=== PATIENT | female | born 1990 | race Caucasian/White ===

== ENCOUNTER 2018-06-02 10:15 | Day surgery (SDC) | payer OTHER ==
--- NOTE | 2018-06-02 08:11 | HP ---
DATE OF SURGERY: 06/02/2018 HISTORY OF PRESENT ILLNESS: The patient is a 28 year-old had boil-like area that hurt initially, still draining. She had some problems for the past few years. Family history of grandfather with stomach issues. No colon cancer. No known inflammatory bowel disease in the family. No prior colonoscopy. She had some bloating, pain, diarrhea and nausea. Okay for a few days and then worse for two weeks. PAST MEDICAL HISTORY: She denies any chronic illnesses. PAST SURGICAL HISTORY: Appendectomy, tubal in the past. MEDICATIONS: control pills. ALLERGIES: SULFA. FAMILY HISTORY: Cancer, diabetes. Grandfather may have had colon cancer. SOCIAL HISTORY: No smoking. Occasional alcohol use. REVIEW OF SYSTEMS: Twelve systems reviewed. No chest pain or palpitations other systems negative or noncontributory as above and per preadmission questionnaire. PHYSICAL EXAMINATION: GENERAL: No acute distress. HEENT: Sclerae nonicteric. NECK: No JVD. CHEST: Equal excursion, nonlabored breathing. CVS: Regular rate and rhythm. ABDOMEN: Soft. No peritoneal signs. EXTREMITIES: No significant edema. NEURO: Alert, moving extremities symmetrically. No gross motor deficits noted. : Some drainage perianal area unclear if fistula ano or not. IMPRESSION: Persistent perianal drainage possible fistula. I feel the patient will benefit from colonoscopy, exam under anesthesia, possible fistula plus placement, possible fistulectomy or fistulotomy depending on operative findings. Risks and benefits explained in detail including but not limited to bleeding or infection, risk of bowel injury or perforation possibly requiring open procedure, risk of missed or nondiagnosis or incomplete exam possibly requiring barium enema, other studies or procedures, possibility we may not find any internal opening, may not be able to place a plug and while it is superficial may not be able to proceed with fistulotomy or fistulectomy. Risk of aches, pains, burning or numbness. Risk of sphincter irritability or dysfunction possible transient or longer term possibly requiring other referrals, possibility if unable to find any internal opening may not be able to place a plug, do a fistulotomy or fistulectomy, may require referral to tertiary anal specialist for further evaluation and treatment. She also understands there is a possibility should she have inflammatory bowel disease or Crohn's disease it is common to have perianal disease and be able to treat symptomatically. She understands all of the above but not limited to will proceed with colonoscopy, exam under anesthesia, possible fistula plug placement and possible fistulectomy depending on operative findings.
[~2018-06-02 10:15] MED LIST: ANUSOL-HC 2.5% CREAM 30 GM ONE; Lactated Ringers 1,000 ML IV ONE
[2018-06-02] MEDS ORDERED: SUBLIMAZE 100 MCG/2 ML IV ONE (10:16)
[2018-06-02] MEDS ORDERED: TORAdol 30 mg Injection IJ ONE (10:16)
[2018-06-02] MEDS ORDERED: Quelicin Fliptop 200 MG/10 ML IJ ONE (10:16)
[2018-06-02] MEDS ORDERED: Decadron 4 MG INJ IV ONE (10:16)
[2018-06-02] MEDS ORDERED: DIPRIVAN 200 MG/20 ML IV ONE (10:16)
[2018-06-02] MEDS ORDERED: EXPAREL 266 MG/20 ML VIAL IJ ONE (10:16)
[2018-06-02] MEDS ORDERED: Zofran 4 MG/2 ML VIAL IV ONE (10:16)
[2018-06-02] MEDS: Lactated Ringers 1,000 ML IV SCH ×2 (10:20→15:16)
[2018-06-02] MEDS ORDERED: Lactated Ringers 1,000 ML IV ONE ×2 (12:19→14:05)
[2018-06-02] MEDS ORDERED: DEMEROL 50 MG ONE (13:23)
[2018-06-02] MEDS ORDERED: Zofran 4 MG/2 ML VIAL IV STA (13:55)
[2018-06-02] MEDS ORDERED: Zofran 4 MG/2 ML VIAL ONE (14:01)
[2018-06-02 15:33] VITALS: O2SAT 98
[2018-06-02 15:36] VITALS: BP 142/90; PULSE 75
--- NOTE | 2018-06-03 09:34 | OP ---
SURGERY DATE/TIME: 06/02/2018 1205 PREOPERATIVE DIAGNOSIS: History of recurrent and persistent perianal drainage, question fistula in ano, some bleeding at times, need for colonoscopy as well as exam under anesthesia. POSTOPERATIVE DIAGNOSES: 1) Inflammation of terminal ileum (biopsy pending to evaluate for inflammatory bowel disease). 2) Pancolonic diverticulosis. 3) Internal and external hemorrhoids with fistula in ano. 4) Somewhat poor prep limiting the exam. PROCEDURES: 1) Colonoscopy to terminal ileum. 2) Retrograde ileoscopy. 3) Random ileum biopsy to evaluate for inflammatory bowel disease. 4) Random colon biopsy to evaluate for microscopic colitis. 5) Exam under anesthesia and debridement of fistula in ano and placement of fistula plug with debridement and closure of internal opening. SURGEON: Dr. Willard Stroud. ANESTHESIA: General. ESTIMATED BLOOD LOSS: Minimal. INDICATIONS: As noted above. Risks and benefits explained in detail but not limited to and consent obtained. DESCRIPTION OF PROCEDURE AND FINDINGS: The patient is taken to the operating room. General anesthesia introduced. In lateral position, appropriate padding, positioned per anesthesia and OR staff. Digital rectal exam revealed area where she had been having perianal-perirectal drainage. She had some internal and external hemorrhoids. Video colonoscope inserted and passed up through the tortuous sigmoid, descending, transverse and ascending colon. With external pressure the scope was able to be passed around ascending to cecum and up into the terminal ileum. Retrograde ileoscopy performed. She did have some inflammatory reaction, variation of ileum versus early inflammatory bowel disease or other etiology. It was felt it warranted biopsy and multiple cold biopsies taken to evaluate for inflammatory bowel disease given her perianal disease. Good hemostasis noted. The scope was then pulled back into the colon. Prep was somewhat poor with some liquidy semi-solid limiting the exam for small lesions. The scope is slowly and carefully withdrawn. There were no signs of any large polyps, masses or obstructing lesions. Given her perianal disease random cold biopsies were taken to evaluate for microscopic colitis. She did have pancolonic diverticulosis with some diverticula even in the cecum itself. Several diverticulum in the cecum itself. Otherwise the scope was slowly and carefully withdrawn. Other than internal and external hemorrhoids, there were no signs of any large masses or obstructing lesions. Again, the prep did limit the exam for small lesions. The scope is withdrawn. The patient tolerated this part of the procedure well. She is then placed in dorsal lithotomy position. Remained under general anesthetic. She is prepped and draped in usual sterile fashion. Some Exparel is injected circumferentially around the perianal-perirectal area. The tract where she had some drainage anterior off to the right using Angiocath and some saline and water was gently injected visualizing the internal opening with half-gillis retractor. She had some internal and external hemorrhoids. There were no signs of any obvious masses. At this point options were to consider fistula plug placement as there is a question whether she had some inflammatory bowel disease or not at this point. It was felt that rather than doing fistulotomy it would be safer to do fistula plug placement at this point. Probe is then carefully passed through the tract. The suture pulled through with fistula plug and into the tract. Debridement of the tract accomplished this was followed by pulling the fistula plug through. It was then anchored with some Monocryl to internal opening. Again, opening itself had been debrided and closed over the top over the plug externally to allow for any drainage. Good hemostasis is noted. Again, will send for inflammatory bowel disease GI and await for biopsy results to see if there is any component of inflammatory bowel disease. The findings were discussed with the family out in the waiting area.
== END 2018-06-02 15:15 | disposition home or self-care (01) ==
LOC: SDC 10:15
PROVIDERS: ATTEND Surgery
DX: K63.89 Other specified diseases of intestine (principal); K57.10 Diverticulosis of small intestine without perforation or abscess without bleeding; K64.4 Residual hemorrhoidal skin tags; K64.8 Other hemorrhoids; K60.3 Anal fistula; R10.9 Unspecified abdominal pain
CPT/HCPCS: 88305; 94250; J0330; J1100; J1885; J2175; J2405; J2704; J3010; A9270-GY

== ENCOUNTER 2018-08-09 12:23 | Emergency (ER) | payer OTHER ==
--- NOTE | 2018-08-09 12:56 | ERPHSYRPT ---
- History of Present Illness Time Seen by Provider: 08/09/18 12:50 Source: patient Exam Limitations: no limitations Patient Subjective Stated Complaint: states three weeks ago was hit on right lower leg with a dinner plate. states bruising has gotten worse and is spreading down into right foot. states is painful when she flexes her foot and calf and when she walks. Triage Nursing Assessment: bruising noted to right lower leg and foot. area tender to touch. good pedal pulse. right foot warm. Physician History: The patient is a 28-year-old female complaining that she threw a large dinner plate and accidentally hit herself in the right kam causing pain and bruising 3 weeks ago. She still has bruising and pain. It hurts in the kam and surrounding area when she flexes her foot at the ankle. Her past medical history is noncontributory. Method of Injury: direct blow Occurred: other (3 weeks ago) Quality: constant Severity of Pain-Max: moderate Severity of Pain-Current: mild Lower Extremities Pain: leg: right Modifying Factors: Improves With: nothing Associated Symptoms: none Allergies/Adverse Reactions: Sulfa (Sulfonamide Antibiotics) Allergy (Verified 08/09/18 12:36) Penicillins Adverse Reaction (Verified 08/09/18 12:36) Home Medications: Phentermine HCl [Adipex-P] 37.5 mg PO DAILY 08/09/18 [History] Hx Tetanus, Diphtheria Vaccination/Date Given: Yes Hx Influenza Vaccination/Date Given: No Hx Pneumococcal Vaccination/Date Given: No - Review of Systems Constitutional: No Fever, No Chills Eyes: No Symptoms Ears, Nose, & Throat: No Symptoms Respiratory: No Cough, No Dyspnea Cardiac: No Chest Pain, No Edema, No Syncope Abdominal/Gastrointestinal: No Abdominal Pain, No Nausea, No Vomiting, No Diarrhea Genitourinary Symptoms: No Dysuria Musculoskeletal: Injury Skin: No Rash Neurological: No Dizziness, No Focal Weakness, No Sensory Changes Psychological: No Symptoms Endocrine: No Symptoms Hematologic/Lymphatic: No Symptoms Immunological/Allergic: No Symptoms All Other Systems: Reviewed and Negative - Past Medical History Pertinent Past Medical History: Yes Neurological History: No Pertinent History ENT History: No Pertinent History Cardiac History: No Pertinent History Respiratory History: No Pertinent History Endocrine Medical History: No Pertinent History Musculoskeletal History: No Pertinent History GI Medical History: No Pertinent History History: No Pertinent History Psycho-Social History: No Pertinent History Female Reproductive Disorders: No Pertinent History Other Medical History: severe depression and pp depression - Past Surgical History Past Surgical History: Yes Neuro Surgical History: No Pertinent History Cardiac: No Pertinent History Respiratory: No Pertinent History Gastrointestinal: Appendectomy, Other Genitourinary: No Pertinent History Musculoskeletal: No Pertinent History Female Surgical History: Tubal Ligation Other Surgical History: abnormal pap x1, perf bowel - Social History Smoking Status: Never smoker How long have you smoked: 5 yrs Exposure to second hand smoke: No Drug Use: marijuana Patient Lives Alone: No - Female History Hx Last Menstrual Period: irregular Hx Now: No - Nursing Vital Signs Nursing Vital Signs: Initial Vital Signs Temperature 97.7 F 08/09/18 12:27 Pulse Rate 73 08/09/18 12:27 Respiratory Rate 16 08/09/18 12:27 Blood Pressure 128/76 08/09/18 12:27 O2 Sat by Pulse Oximetry 98 08/09/18 12:27 Pain Scale Pain Intensity 8 - Physical Exam General Appearance: alert Eyes, Ears, Nose, Throat Exam: moist mucous membranes Neck Exam: non-tender, supple Cardiovascular/Respiratory Exam: chest non-tender, normal breath sounds, regular rate/rhythm, no respiratory distress Gastrointestinal/Abdominal Exam: non-tender, guarding Back Exam: normal inspection, No vertebral tenderness Hips Exam: bilateral: normal inspection Legs Exam: right leg: ecchymosis, pain, soft tissue tenderness, other (Physical examination of the right leg: There is mild tenderness to the mid to distal kam with surrounding ecchymosis and dependent ecchymosis into the right foot. There are no palpable cords or tenderness in the posterior calf. Calf measurements are equal in both calves.), left leg: normal inspection Ankle Exam: bilateral ankle: non-tender, normal inspection Foot Exam: right foot: ecchymosis, left foot: non-tender, normal inspection Neuro/Tendon Exam: normal sensation, normal motor functions Mental Status Exam: alert, oriented x 3, cooperative Skin Exam: ecchymosis (right lower leg and foot) SpO2 Interpretation: normal SpO2: 98 Oxygen Delivery: Room Air - Radiology Exams Right Lower Leg X-ray Interpretation: Interpreted by me, No Fracture Ordered Tests: Active Orders 24 hr Category Date Time Status LOWER LEG Stat Exams 08/09/18 12:59 Taken - Progress Progress: unchanged Progress Note: 08/09/18 13:33 The patient was offered Toradol for pain relief. The patient declined. After I told the patient the results of the lower leg x-ray, the patient asked if she had a blood clot. She told me her mother is a nurse and thought this was a blood clot. I offered immediately to evaluate her for blood clot (DVT) and the patient declined at this time. Counseled pt/family regarding: diagnosis, rad results - Departure Time of Disposition: 13:35 Departure Disposition: Home Clinical Impression: Traumatic ecchymosis of right lower leg Condition: Stable Critical Care Time: No Referrals: PAUL LR [Primary Care Provider] - Additional Instructions: You have bruising at the site of the traumatic injury to your right lower leg. You also have dependent bruising to the right lower leg. The x-ray of your leg was negative. Take Tylenol and ibuprofen as needed for pain. If you have any further problems, do not hesitate to return to the ER or see your primary medical doctor.
[2018-08-09 13:33] VITALS: BP 128/84; PULSE 72
[2018-08-09 13:34] VITALS: O2SAT 98
--- NOTE | 2018-08-09 19:02 | XRAY ---
Indication: Pain and bruising following injury 3 weeks ago. Comparison: None 2 views of the right lower leg obtained. No bony, articular, or soft tissue abnormalities.
== END 2018-08-09 13:51 | disposition home or self-care (01) ==
LOC: ED 12:23
DX: S80.11XA Contusion of right lower leg, initial encounter (principal); W22.8XXA Striking against or struck by other objects, initial encounter
CPT/HCPCS: 73590; 99283

== ENCOUNTER 2018-12-03 19:33 | Emergency (ER) | payer OTHER ==
[2018-12-03] MEDS ORDERED: Sodium Chloride 0.9% 1000 ML 1,000 ML IV STA (19:55)
[2018-12-03] MEDS ORDERED: Zofran 4 MG/2 ML VIAL IV ONE (19:55)
[2018-12-03] MEDS ORDERED: Cipro 500 MG ONE (21:20)
[2018-12-03] MEDS ORDERED: FLAGYL 500 MG IVPB 500 MG/100 ML BAG IV STA (21:20)
[2018-12-03] MEDS ORDERED: Sodium Chloride 0.9% 1000 ML 1,000 ML ONE (21:20)
[2018-12-03] MEDS ORDERED: Zofran 4 MG/2 ML VIAL ONE (21:20)
[2018-12-03] MEDS ORDERED: FLAGYL 500 MG IVPB 500 MG/100 ML BAG IV ONE (21:23)
[2018-12-03 21:45] LABS: BASOPHIL % 0.3 % (0.0-0.4); Basophil (Absolute #) 0.03 (0-0.4); Eosinophil % 1.6 % (0.00-5.0); Eosinophil (Absolute #) 0.16 (0-0.5); Granulocyte Absolute (ANC) 6.17 (1.4-6.9); Granulocytes % 61.2 % (36.0-66.0); Hematocrit 38.3 % (35-47); Lymphocyte (Absolute #) 3.12 (1.0-4.6); Mean Cell Volume 88.7 fl (78-100); Mean Corpuscular Hemoglobin 27.8 pg (26-32); Mean Corpuscular Hgb Concent. 31.3 g/dl (32-36); Monocyte (Absolute #) 0.59 (0.0-1.3); Monocytes % 5.9 % (0.0-12.0); Platelet Count 319 K/mm3 (150-450); Red Blood Count 4.32 M/mm3 (4.1-5.4); White Blood Count 10.1 K/mm3 (4.0-10.5)
[2018-12-03 21:57] LABS: ALBUMIN 4.2 g/dL (3.5-5.0); ALKALINE PHOSPHATASE 112 U/L (38-126); AMYLASE 63 U/L (30-110); ANION GAP 12.5 MEQ/L (5-15); BLOOD UREA NITROGEN 12 mg/dL (7-17); CHLORIDE 105 mmol/L (98-107); Calcium 9.4 mg/dL (8.4-10.2); Carbon Dioxide 28 mmol/L (22-30); Creatinine 1 0.87 mg/dL (0.52-1.04); Glucose 99 mg/dL (74-106); LIPASE 101 U/L (23-300); Potassium 4.1 mmol/L (3.5-5.1); SGOT/AST 21 U/L (14-36); SGPT/ALT 23 U/L (0-35); SODIUM 141 mmol/L (137-145); Total Protein 8.5 g/dL (6.3-8.2)
[2018-12-03] MEDS ORDERED: Cipro 500 MG PO SCH (22:00)
[2018-12-03 23:44] VITALS: BP 127/82; O2SAT 100
[2018-12-03 23:55] LABS: Appearance SLIGHTLY CLOUDY (CLEAR); Bilirubin NEGATIVE (NEGATIVE); Blood NEGATIVE Ery/ul (0-5); Epithelial Cells RARE /HPF (FEW); Glucose NEGATIVE (NEGATIVE); Ketones NEGATIVE (NEGATIVE); Leukocyte Esterase SMALL (NEGATIVE); Mucus SLIGHT /HPF (NEGATIVE); Nitrite NEGATIVE (NEGATIVE); Protein,Urine Dip NEGATIVE (Negative); RBC 0-2 /HPF (0-2); Specific Gravity 1.025 (1.005-1.025); Urobilinogen NEGATIVE mg/dL (0-1)
--- NOTE | 2018-12-04 01:33 | ERPHSYRPT ---
- History of Present Illness Historian: patient Exam Limitations: no limitations Patient Subjective Stated Complaint: pt is alert and oriented. pt is ambulatory with a steady gait. pt comes in with complaint of abd pain. pt states she was diagnosed with diverticulosis at the end of May 2018. pt states she has not had an "episode this bad in 6 months". pt abd is soft. pt states pain is in upper abd. upon palpitation pain seems to be in the URQ and epigastric. pt states she's been having diarrhea as well, denies blood in her stool. Triage Nursing Assessment: see above Physician History: Pt is a 28 y/o female that presented to the ED with complains of diffuse abdominal pain, with diarrhea. Pt states, had multiple episodes in the past and diagnosis of diverticulitis. The pt denies F/C/S. No SOB or cough. No chest discomfort. No melena or hematochezia. Timing/Duration: yesterday Abdominal Pain Onset Location: generalized abdomen Pain Radiation: no radiation Severity of Pain-Max: moderate Severity of Pain-Current: moderate Modifying Factors: Improves With: nothing Associated Symptoms: diarrhea, nausea Allergies/Adverse Reactions: Sulfa (Sulfonamide Antibiotics) Allergy (Verified 08/09/18 12:36) Penicillins Adverse Reaction (Verified 08/09/18 12:36) Home Medications: Aspirin/Acetaminophen/Caffeine [Excedrin Migraine Caplet] 2 tablet PO DAILY [History] Loratadine 10 mg [Claritin 10 mg] 10 mg PO DAILY 12/03/18 [History] Hx Tetanus, Diphtheria Vaccination/Date Given: Yes Hx Influenza Vaccination/Date Given: No Hx Pneumococcal Vaccination/Date Given: No Immunizations Up to Date: Yes - Review of Systems Constitutional: Fever (Subjective) Eyes: No Symptoms Ears, Nose, & Throat: No Symptoms Respiratory: No Cough, No Dyspnea Cardiac: No Chest Pain, No Edema, No Syncope Abdominal/Gastrointestinal: Abdominal Pain, Nausea, Diarrhea Genitourinary Symptoms: No Dysuria Musculoskeletal: No Back Pain, No Neck Pain Neurological: No Dizziness, No Focal Weakness, No Sensory Changes - Past Medical History Pertinent Past Medical History: Yes Neurological History: No Pertinent History ENT History: No Pertinent History Cardiac History: No Pertinent History Respiratory History: No Pertinent History Endocrine Medical History: No Pertinent History Musculoskeletal History: No Pertinent History GI Medical History: Diverticulosis History: No Pertinent History Psycho-Social History: No Pertinent History Female Reproductive Disorders: No Pertinent History Other Medical History: severe depression and pp depression - Past Surgical History Past Surgical History: Yes Neuro Surgical History: No Pertinent History Cardiac: No Pertinent History Respiratory: No Pertinent History Gastrointestinal: Appendectomy, Other Genitourinary: No Pertinent History Musculoskeletal: No Pertinent History Female Surgical History: Tubal Ligation Other Surgical History: abnormal pap x1, perf bowel - Social History Smoking Status: Former smoker How long have you smoked: 5 yrs Exposure to second hand smoke: No Drug Use: none Patient Lives Alone: No - Female History Hx Last Menstrual Period: August 2018 Hx Now: No (Pt has had tubal) - Nursing Vital Signs Nursing Vital Signs: Initial Vital Signs Temperature 97.5 F 12/03/18 19:41 Pulse Rate 72 12/03/18 19:41 Respiratory Rate 18 12/03/18 19:41 Blood Pressure 142/86 12/03/18 19:41 O2 Sat by Pulse Oximetry 99 12/03/18 19:41 Pain Scale Pain Intensity 6 - Physical Exam General Appearance: no apparent distress, alert Eye Exam: PERRL/EOMI, eyes nml inspection Ears, Nose, Throat Exam: normal ENT inspection, pharynx normal, moist mucous membranes Respiratory Exam: normal breath sounds, lungs clear, No respiratory distress Cardiovascular Exam: regular rate/rhythm, normal heart sounds Gastrointestinal/Abdomen Exam: soft, tenderness (mild) Extremity Exam: normal inspection, normal range of motion, pelvis stable Neurologic Exam: alert, oriented x 3, cooperative, normal mood/affect, nml cerebellar function, sensation nml, No motor deficits SpO2: 100 - CT Exams Abdomen/Pelvis CT Interpretation: Negative Ordered Tests: Active Orders 24 hr Category Date Time Status IV Insertion STAT Care 12/03/18 19:55 Active ABDOMEN AND PELVIS W CONTRAST [CT] Stat Exams 12/03/18 19:56 Taken AMYLASE Stat Lab 12/03/18 21:15 Completed BLOOD CULTURE Stat Lab 12/03/18 21:15 Received CBC W DIFF Stat Lab 12/03/18 21:15 Completed CMP Stat Lab 12/03/18 21:15 Completed HCG,QUALITATIVE URINE Stat Lab 12/03/18 23:42 Completed LIPASE Stat Lab 12/03/18 21:15 Completed Lactic Acid Stat Lab 12/03/18 19:55 Completed UA W/RFX UR CULTURE Stat Lab 12/03/18 23:42 Completed Medication Summary Generic Name Dose Route Start Last Admin Trade Name Herson PRN Reason Stop Dose Admin Ciprofloxacin 500 mg 12/03/18 22:00 12/03/18 21:29 Cipro 500 Mg PO 01/02/19 21:59 500 mg BID EDMAR Administration Discontinued Medications Generic Name Dose Route Start Last Admin Trade Name Herson PRN Reason Stop Dose Admin Sodium Chloride 1,000 mls @ 999 mls/hr 12/03/18 19:55 12/03/18 21:30 Sodium Chloride 0.9% 1000 Ml IV 12/03/18 20:55 999 mls/hr .Q1H1M STA Administration Metronidazole 500 mg in 100 mls @ 200 mls/hr 12/03/18 21:20 12/03/18 22:25 Flagyl 500 Mg Ivpb IV 12/03/18 21:49 Infused STAT STA Infusion Sodium Chloride Confirm 12/03/18 21:20 Sodium Chloride 0.9% 1000 Ml Administered 12/03/18 21:21 Dose 1,000 mls @ ud .ROUTE .STK-MED ONE Metronidazole Confirm 12/03/18 21:23 Flagyl 500 Mg Ivpb Administered 12/03/18 21:24 Dose 500 mg in 100 mls @ ud IV .STK-MED ONE Ondansetron HCl 4 mg 12/03/18 19:55 12/03/18 21:30 Zofran 4 Mg/2 Ml Vial IV 12/03/18 19:56 4 mg STAT ONE Administration Ondansetron HCl Confirm 12/03/18 21:20 Zofran 4 Mg/2 Ml Vial Administered 12/03/18 21:21 Dose 4 mg .ROUTE .STK-MED ONE Lab/Rad Data: Laboratory Result Diagrams 12/03/18 21:15 12/03/18 21:15 Laboratory Results 12/03/18 12/03/18 12/03/18 Range/Units 23:42 23:42 21:15 WBC (4.0-10.5) K/mm3 RBC (4.1-5.4) M/mm3 Hgb (12.0-16.0) gm/dl Hct (35-47) % MCV (78-100) fl MCH (26-32) pg MCHC (32-36) g/dl RDW (11.5-14.0) % Plt Count (150-450) K/mm3 MPV (6-9.5) fl Gran % (36.0-66.0) % Eos # (Auto) (0-0.5) Absolute Lymphs (auto) (1.0-4.6) Absolute Monos (auto) (0.0-1.3) Lymphocytes % (24.0-44.0) % Monocytes % (0.0-12.0) % Eosinophils % (0.00-5.0) % Basophils % (0.0-0.4) % Absolute Granulocytes (1.4-6.9) Basophils # (0-0.4) Sodium 141 (137-145) mmol/L Potassium 4.1 (3.5-5.1) mmol/L Chloride 105 (98-107) mmol/L Carbon Dioxide 28 (22-30) mmol/L Anion Gap 12.5 (5-15) MEQ/L BUN 12 (7-17) mg/dL Creatinine 0.87 (0.52-1.04) mg/dL Estimated GFR > 60.0 ML/MIN Glucose 99 (74-106) mg/dL Lactic Acid (0.4-2.0) Calcium 9.4 (8.4-10.2) mg/dL Total Bilirubin 0.30 (0.2-1.3) mg/dL AST 21 (14-36) U/L ALT 23 (0-35) U/L Alkaline Phosphatase 112 (38-126) U/L Serum Total Protein 8.5 H (6.3-8.2) g/dL Albumin 4.2 (3.5-5.0) g/dL Amylase 63 (30-110) U/L Lipase 101 (23-300) U/L Urine Color YELLOW (YELLOW) Urine Appearance SLIGHTLY CLOUDY (CLEAR) Urine pH 5.0 (5-6) Ur Specific Palmer 1.025 (1.005-1.025) Urine Protein NEGATIVE (Negative) Urine Ketones NEGATIVE (NEGATIVE) Urine Blood NEGATIVE (0-5) Aditya/ul Urine Nitrite NEGATIVE (NEGATIVE) Urine Bilirubin NEGATIVE (NEGATIVE) Urine Urobilinogen NEGATIVE (0-1) mg/dL Ur Leukocyte Esterase SMALL (NEGATIVE) Urine WBC (Auto) 6-10 (0-5) /HPF Urine RBC (Auto) 0-2 (0-2) /HPF U Epithel Cells (Auto) RARE (FEW) /HPF Urine Bacteria (Auto) NONE (NEGATIVE) /HPF Urine Mucus (Auto) SLIGHT (NEGATIVE) /HPF Urine Culture Reflexed NO (NO) Urine Glucose NEGATIVE (NEGATIVE) mg/dL Urine HCG, Qual NEGATIVE (Negative) 12/03/18 12/03/18 Range/Units 21:15 19:55 WBC 10.1 (4.0-10.5) K/mm3 RBC 4.32 (4.1-5.4) M/mm3 Hgb 12.0 (12.0-16.0) gm/dl Hct 38.3 (35-47) % MCV 88.7 (78-100) fl MCH 27.8 (26-32) pg MCHC 31.3 L (32-36) g/dl RDW 13.0 (11.5-14.0) % Plt Count 319 (150-450) K/mm3 MPV 11.0 H (6-9.5) fl Gran % 61.2 (36.0-66.0) % Eos # (Auto) 0.16 (0-0.5) Absolute Lymphs (auto) 3.12 (1.0-4.6) Absolute Monos (auto) 0.59 (0.0-1.3) Lymphocytes % 31.0 (24.0-44.0) % Monocytes % 5.9 (0.0-12.0) % Eosinophils % 1.6 (0.00-5.0) % Basophils % 0.3 (0.0-0.4) % Absolute Granulocytes 6.17 (1.4-6.9) Basophils # 0.03 (0-0.4) Sodium (137-145) mmol/L Potassium (3.5-5.1) mmol/L Chloride (98-107) mmol/L Carbon Dioxide (22-30) mmol/L Anion Gap (5-15) MEQ/L BUN (7-17) mg/dL Creatinine (0.52-1.04) mg/dL Estimated GFR ML/MIN Glucose (74-106) mg/dL Lactic Acid 1.3 (0.4-2.0) Calcium (8.4-10.2) mg/dL Total Bilirubin (0.2-1.3) mg/dL AST (14-36) U/L ALT (0-35) U/L Alkaline Phosphatase (38-126) U/L Serum Total Protein (6.3-8.2) g/dL Albumin (3.5-5.0) g/dL Amylase (30-110) U/L Lipase (23-300) U/L Urine Color (YELLOW) Urine Appearance (CLEAR) Urine pH (5-6) Ur Specific Palmer (1.005-1.025) Urine Protein (Negative) Urine Ketones (NEGATIVE) Urine Blood (0-5) Aditya/ul Urine Nitrite (NEGATIVE) Urine Bilirubin (NEGATIVE) Urine Urobilinogen (0-1) mg/dL Ur Leukocyte Esterase (NEGATIVE) Urine WBC (Auto) (0-5) /HPF Urine RBC (Auto) (0-2) /HPF U Epithel Cells (Auto) (FEW) /HPF Urine Bacteria (Auto) (NEGATIVE) /HPF Urine Mucus (Auto) (NEGATIVE) /HPF Urine Culture Reflexed (NO) Urine Glucose (NEGATIVE) mg/dL Urine HCG, Qual (Negative) - Progress Progress: improved Progress Note: 12/04/18 01:31 Pt was given Cipro and Flagyl. She received a liter of fluid IV, and is feeling better. Will give the pt a prescription for Flagyl for 5 days. Pt wilma f/u with her PCP and GI specialist. Will see patient in: office Counseled pt/family regarding: need for follow-up - Departure Time of Disposition: 01:33 Departure Disposition: Home Clinical Impression: Abdominal pain Condition: Stable Critical Care Time: No Referrals: PAUL LR [Primary Care Provider] - Additional Instructions: F/U with PCP and GI specialist. Avoid all Alcohol while on Flagyl. Prescriptions: Metronidazole 500 mg [Flagyl 500 MG] 500 mg PO TID 5 Days #15 tablet
[2018-12-04 01:43] VITALS: PULSE 82
--- NOTE | 2018-12-04 09:16 | XRAY ---
Indication: Abdomen pain. Nausea and vomiting. Multiple contiguous axial images obtained through the abdomen and pelvis using 80 cc Isovue 370 contrast only. Comparison: None. Lung bases are clear. Heart is not enlarged. Noncontrasted stomach and bowel loops appear nonobstructed. Previous appendectomy. Mild sigmoid diverticulosis without diverticulitis. No free fluid/air. Nonobstructing punctate right mid renal calculus. Spleen is enlarged measuring 13.5 cm in greatest axial dimension. Remaining liver, gallbladder, pancreas, spleen, adrenal glands, kidneys, ureters, bladder, uterus, ovaries, and aorta appear normal in CT appear unremarkable. No pathologic retroperitoneal lymphadenopathy. Osseous structures intact. No ventral or inguinal hernias. Impression: 1. Nonobstructing right renal micro-calculus, sigmoid diverticulosis, and splenomegaly. 2. Remaining CT abdomen/pelvis with contrast exam is negative. Comment: Preliminary interpretation was made by [facility]. No critical discrepancy. CT DI 23.68
== END 2018-12-04 01:46 | disposition home or self-care (01) ==
LOC: ED 19:33
DX: J10.1 Influenza due to other identified influenza virus with other respiratory manifestations (principal); J02.0 Streptococcal pharyngitis
CPT/HCPCS: 36000; 36415; 74177; 80053; 81001; 82150; 83605; 83690; 84703; 85025; 87040; 96360; 96365; 96374; 99284; J2405; A9270-GY

== ENCOUNTER 2021-06-04 16:12 | Emergency (ER) | payer OTHER ==
[2021-06-04] MEDS ORDERED: TYLENOL 325 MG PO STA (16:40)
[2021-06-04] MEDS ORDERED: TYLENOL 325 MG ONE (16:43)
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
[2021-06-04 18:20] VITALS: BP 118/70; PULSE 88
[2021-06-04 18:25] VITALS: O2SAT 99
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
== END 2021-06-04 18:36 | disposition home or self-care (01) ==
LOC: EEVIPCON 16:12 → ED 16:12
DX: S16.1XXA Strain of muscle, fascia and tendon at neck level, initial encounter (principal); S00.03XA Contusion of scalp, initial encounter; Y04.0XXA Assault by unarmed brawl or fight, initial encounter; Z79.899 Other long term (current) drug therapy
CPT/HCPCS: 70450; 72125; 99283; L0172; A9270-GY

== ENCOUNTER 2022-01-08 17:38 | Emergency (ER) | payer OTHER ==
[2022-01-08] MEDS ORDERED: TORAdol 30 mg Injection IV ONE (17:53)
[2022-01-08] MEDS ORDERED: Zofran 4 MG/2 ML VIAL IV ONE (17:54)
[2022-01-08] MEDS ORDERED: Sodium Chloride 0.9% 1000 ML 1,000 ML IV STA (17:54)
[2022-01-08] MEDS ORDERED: TORAdol 30 mg Injection ONE (17:55)
[2022-01-08] MEDS ORDERED: Sodium Chloride 0.9% 1000 ML 1,000 ML ONE (17:55)
[2022-01-08] MEDS ORDERED: Zofran 4 MG/2 ML VIAL ONE (17:55)
[2022-01-08] MEDS ORDERED: SUBLIMAZE 100 MCG/2 ML ONE (18:04)
[2022-01-08] MEDS ORDERED: SUBLIMAZE 100 MCG/2 ML IV ONE (18:09)
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
[2022-01-08 18:24] LABS: Appearance SLIGHTLY CLOUDY (CLEAR); Bilirubin NEGATIVE (NEGATIVE); Blood LARGE Ery/ul (0-5); Epithelial Cells RARE /HPF (FEW); Glucose NEGATIVE (NEGATIVE); Ketones NEGATIVE (NEGATIVE); Leukocyte Esterase NEGATIVE (NEGATIVE); Mucus SLIGHT /HPF (NEGATIVE); Nitrite NEGATIVE (NEGATIVE); Protein,Urine Dip NEGATIVE (Negative); Specific Gravity 1.015 (1.005-1.025); Urobilinogen NEGATIVE mg/dL (0-1)
[2022-01-08 18:26] LABS: RBC >101 /HPF (0-2)
[2022-01-08] MEDS ORDERED: Hydromorphone 1 mg/ml Injection ONE (18:57)
[2022-01-08] MEDS ORDERED: Hydromorphone 1 mg/ml Injection IV ONE (18:57)
[2022-01-08 19:16] VITALS: PULSE 70
[2022-01-08 20:07] VITALS: BP 120/80; O2SAT 99
--- NOTE | 2022-01-09 08:47 | XRAY ---
Indication: Right flank pain. Nausea and vomiting. Multiple contiguous axial images obtained through the abdomen and pelvis without contrast using renal stone protocol. Comparison: December 03, 2018. Lung bases remain clear. Heart not enlarged. Urinary bladder demonstrates new 4 mm calculus adjacent to the right UVJ. Right kidney is now mildly hydronephrotic consistent with recent passage of said calculus. No other renal calculus/calcifications. Stomach is distended with food/fluid. Noncontrasted stomach and bowel loops appear nonobstructed with again previous appendectomy. Again minimal sigmoid diverticulosis. Remaining liver, gallbladder, pancreas, spleen, adrenal glands, kidneys, ureters, bladder, uterus, and aorta appear unremarkable for noncontrast exam. Osseous structures intact. Impression: 1. New 4 mm urinary bladder calculus. Hydronephrotic right kidney consistent with recent passage of calculus. 2. Remaining CT abdomen/pelvis without contrast exam is negative.
== END 2022-01-08 20:13 | disposition home or self-care (01) ==
LOC: ED 17:38
DX: N20.0 Calculus of kidney (principal); R11.2 Nausea with vomiting, unspecified; R10.31 Right lower quadrant pain; Z79.899 Other long term (current) drug therapy; K57.90 Diverticulosis of intestine, part unspecified, without perforation or abscess without bleeding; Z72.0 Tobacco use
CPT/HCPCS: 36000; 74176; 81001; 84703; 96374; 96375; 99284; J1170; J1885; J2405; J3010